=== PATIENT | female | born 1955 | race Caucasian/White ===

== ENCOUNTER 2016-08-01 10:27 | Day surgery (SDC) | payer BC ==
[~2016-08-01 10:27] MED LIST: Lactated Ringers 1,000 ML IV SCH
[2016-08-01] MEDS ORDERED: fentaNYL 100 MCG/2 ML SDV ONE (11:00)
[2016-08-01] MEDS ORDERED: Propofol 200 MG/20 ML SDV ONE (11:00)
[2016-08-01 12:50] VITALS: BP 135/72
--- NOTE | 2016-08-01 21:39 | OR ---
PREOPERATIVE DIAGNOSIS: Family history of colon polyps. POSTOPERATIVE DIAGNOSIS: Family history of colon polyps. PROCEDURE PERFORMED: Colonoscopy. INDICATION: Patient is a 60-year-old female with family history of colon cancer. Her last colonoscopy was greater than 5 years ago. Presents for repeat colonoscopy at this time. PROCEDURE IN DETAIL: The patient was brought to the endoscopy suite, sedation was given per Anesthesia. She was placed in the left lateral position. First, the rectal exam was normal. Scope was introduced in the rectum, slowly advanced through the rectum, sigmoid, descending, transverse, and ascending colon until the cecum was reached. Upon reaching the cecum, scope was withdrawn looking all mucosal surfaces on the way out. No mucosal abnormalities lesions or polyps were noted. DIAGNOSIS: Normal colonoscopy. BKD: 08/01/2016 12:03:17 MODL: 08/01/2016 21:33:40 /[id number]
== END 2016-08-01 13:30 | disposition home or self-care (01) ==
LOC: VM.SDS 10:27
PROVIDERS: ATTEND Surgery
DX: Z12.11 Encounter for screening for malignant neoplasm of colon (principal); E78.00 Pure hypercholesterolemia, unspecified; J30.2 Other seasonal allergic rhinitis; Z98.890 Other specified postprocedural states; Z79.899 Other long term (current) drug therapy
CPT/HCPCS: 45378; J2704; J3010; J7120

== ENCOUNTER → 2022-05-09 | Day surgery (SDC) | payer MEDICARE, OTHER ==
[~2022-05-09] MED LIST changes: +Propofol 200 MG/20 ML SDV ONE; +Sodium Chloride 0.9% 10 ML Syringe FLUSH PRN; +fentaNYL 100 MCG/2 ML SDV ONE
[2022-05-09] MEDS: Lactated Ringers 1,000 ML IV SCH (07:56)
[2022-05-09 10:11] VITALS: PULSE 70
[2022-05-09 12:11] VITALS: BP 110/66
== END ==
LOC: VM.SDS 07:42
PROVIDERS: ATTEND Surgery
DX: Z12.11 Encounter for screening for malignant neoplasm of colon (principal); D12.0 Benign neoplasm of cecum; E78.5 Hyperlipidemia, unspecified; Z80.0 Family history of malignant neoplasm of digestive organs; Z86.010 Personal history of colon polyps; Z79.899 Other long term (current) drug therapy; Z91.048 Other nonmedicinal substance allergy status; Z98.890 Other specified postprocedural states
CPT/HCPCS: J2704; J3010; J7120

== ENCOUNTER 2024-02-21 12:07 | Emergency (ER) | payer MEDICARE, OTHER ==
[2024-02-21] MEDS ORDERED: Sodium Chloride 0.9% 10 ML Syringe FLUSH PRN (12:17)
[2024-02-21 12:30] LABS: BASOPHILS ABSOLUTE AUTO 0.1 x10^3/uL (0.0-0.2); BASOPHILS PERCENT AUTO 0.6 % (0.2-1.2); EOSINOPHILS PERCENT AUTO 0.5 % (0.0-4.0); HEMATOCRIT 40.6 % (33.0-47.0); HEMOGLOBIN 13.5 g/dL (12.0-16.0); IMMATURE GRAN ABSOLUTE AUTO 0.01 x10^3/uL (0.00-0.07); LYMPHOCYTES ABSOLUTE AUTO 0.9 x10^3/uL (1.0-4.8); MEAN CORPUSCULAR HEMOGLOBIN 30.3 pg (26.0-32.0); MEAN CORPUSCULAR HGB CONC 33.3 g/dL (32.0-36.0); MONOCYTES ABSOLUTE AUTO 0.3 x10^3/uL (0.0-0.8); MONOCYTES PERCENT AUTO 3.8 % (2.0-11.0); NEUTROPHILS ABSOLUTE AUTO 7.1 x10^3/uL (1.8-7.7); PLATELET COUNT,PLT 296 x10^3/uL (130-400); RED BLOOD CELL COUNT 4.46 x10^6/uL (4.00-5.50); WHITE BLOOD CELL COUNT,WBC 8.4 x10^3/uL (4.0-10.0)
[2024-02-21] MEDS: Lactated Ringers 1,000 ML IV ONE (12:36)
[2024-02-21] MEDS: Ondansetron 4 MG/2 ML SDV IVPUSH ONE (12:36)
[2024-02-21] MEDS: Ketorolac 15 MG/ML SDV IVPUSH ONE (12:38)
[2024-02-21] MEDS: HYDROmorphone 0.5 MG/0.5 ML Syringe IVPUSH ONE (12:40)
[2024-02-21 12:47] LABS: PROTHROMBIN TIME 10.2 SEC (8.9-11.5); PTT,PARTIAL THROMBOPLSTIN TIME 23.6 SEC (21.9-33.8)
[2024-02-21 12:48] LABS: ALANINE AMINOTRANSFERASE,ALT 26 U/L (14-59); ALBUMIN 4.1 g/dL (3.4-5.0); ALKALINE PHOSPHATASE 79 U/L (46-116); AMYLASE 53 U/L (25-115); ASPARTATE AMNIOTRANSFERASE,AST 21 U/L (15-37); BILIRUBIN TOTAL 0.6 mg/dL (0.2-1.0); BLOOD UREA NITROGEN,BUN 19 mg/dL (7-18); CALCIUM 9.3 mg/dL (8.5-10.1); CARBON DIOXIDE,CO2 29 mmol/L (21-32); CHLORIDE,CL 99 mmol/L (98-107); CREATININE 0.9 mg/dL (0.55-1.02); EST CRCL DRUG DOSING (CG) 46.66 mL/min; ETHANOL BLOOD MEDICAL 3 mg/dL (0-3); GLUCOSE RANDOM 113 mg/dL (70-99); LIPASE 31 U/L (19-71); MAGNESIUM 1.8 mg/dL (1.8-2.4); PROTEIN TOTAL,TP 8.2 g/dL (6.4-8.2); SODIUM,NA 136 mmol/L (136-145)
[2024-02-21 12:51] LABS: C-REACTIVE PROTEIN < 0.50 mg/dL (<=0.50); ESTIMATED GFR 69 mL/min (>=60); LACTIC ACID 1.2 mmol/L (0.4-2.0)
[2024-02-21 13:24] LABS: APPEARANCE,URINE CLEAR (CLEAR); BILIRUBIN,URINE NEGATIVE (NEGATIVE); COLOR,URINE YELLOW (YELLOW); GLUCOSE,URINE NEGATIVE (NEGATIVE); KETONES,URINE 15 mg/dL (NEGATIVE); LEUKOCYTE ESTERASE,URINE NEGATIVE (NEGATIVE); NITRITE,URINE NEGATIVE (NEGATIVE); OCCULT BLOOD,URINE TRACE-INTACT (NEGATIVE); PH,URINE 7.5 (5.0-8.0); PROTEIN,URINE NEGATIVE (NEGATIVE); UROBILINOGEN,URINE 0.2 EU/dL (0.2)
[2024-02-21 13:25] LABS: RBC,URINE 0-5 /HPF (NOT SEEN); SQUAMOUS EPITHELIAL CELLS,UR RARE /HPF (NOT SEEN); WBC,URINE 0-5 /HPF (NOT SEEN)
[2024-02-21 13:26] LABS: BACTERIA,URINE NOT SEEN /HPF (NOT SEEN); MUCUS,URINE NOT SEEN /LPF (NOT SEEN)
[2024-02-21 13:38] VITALS: BP 161/84; PULSE 92
== END 2024-02-21 14:16 | disposition home or self-care (01) ==
LOC: VM.ED 12:07
DX: R10.11 Right upper quadrant pain (principal); Z91.048 Other nonmedicinal substance allergy status; N89.8 Other specified noninflammatory disorders of vagina; R30.0 Dysuria; R14.2 Eructation; R63.0 Anorexia; R11.0 Nausea; R10.2 Pelvic and perineal pain
CPT/HCPCS: 74178; 80053; 80307; 81001; 82150; 83605; 83690; 83735; 85025; 85610; 85730; 86140; 96361; 96374; 96375; 99284; J1171; J1885; J2405; J7120; Q9967